=== PATIENT | female | born 1955 | race Caucasian/White ===

== ENCOUNTER 2020-11-23 08:39 | Inpatient (IN) ==
[~2020-11-23 08:39] MED LIST: Dexamethasone IV 4 MG/ML VIAL 1 ml VIAL ONE; HYDROcodone/ACETAMIN 5/325 mg TAB PO PRN; Lidocaine 2% PF 5 ML VIAL ONE; Metoclopramide 5 MG/ML VIAL (10 mg) IV PRN; Midazolam 2 mg/2 ml VIAL 1 mg/ml 2 ml VIAL (2 mg) ONE; Naloxone 0.4 mg VIAL 0.4 mg/ml 1 ml VIAL IV PRN; Ondansetron 4 mg VIAL 2 MG/ML 2 ml VIAL IV PRN; Ondansetron 4 mg VIAL 2 MG/ML 2 ml VIAL ONE; Propofol 10 MG/ML 20 ML BTL ONE; Succinylcholine 200 mg VIAL 20 mg/ml 10 ml VIAL (200 mg) ONE; fentaNYL 250 mcg/5 ml 50 MCG/ML 5 ml VIAL (250 MCG) ONE
[2020-11-23] MEDS ORDERED: Buffered Lidocaine 1% SYRIN 1 ml INTRADERM ONE (09:13)
[2020-11-23] MEDS: Buffered Lidocaine 1% SYRIN 1 ml INTRADERM ONE (09:42)
[2020-11-23] MEDS ORDERED: ceFAZolin 2 GM PREMIX 2 GM/50 ML BAG ONE (09:59)
[2020-11-23] MEDS ORDERED: Lidocaine 4% TOPICAL 50 ML TOP.SOLN ONE (10:24)
[2020-11-23] MEDS ORDERED: Methylene Blue 0.5 % 50 MG/10 ML AMP IV ONE (10:59)
[2020-11-23] MEDS ORDERED: Dexamethasone IV 4 MG/ML VIAL 1 ml VIAL ONE (11:09)
[2020-11-23] MEDS ORDERED: HYDROmorphone 1 MG/1 ML SYRINGE ONE ×2 (12:16→13:53)
[2020-11-23] MEDS ORDERED: Phenylephrine 40 mcg/mL 10mL (400mcg) SYRINGE ONE (13:07)
[2020-11-23] MEDS ORDERED: Propofol 10 MG/ML 20 ML BTL ONE (13:12)
[2020-11-23] MEDS ORDERED: Bacitracin OINTMENT TUBE ONE (14:22)
[2020-11-23] MEDS ORDERED: fentaNYL 100 mcg/2 ml 50 MCG/ML VIAL ONE (15:16)
[2020-11-23] MEDS: fentaNYL 100 mcg/2 ml 50 MCG/ML VIAL IV PRN (15:20)
[2020-11-23] MEDS ORDERED: HYDROcodone/ACETAMIN 5/325 mg TAB PO PRN (15:36)
[2020-11-23] MEDS: Ondansetron 4 mg VIAL 2 MG/ML 2 ml VIAL IV PRN (16:42)
[2020-11-23] MEDS: Ondansetron 4 mg VIAL 2 MG/ML 2 ml VIAL ONE (17:19)
[2020-11-23] MEDS: HYDROcodone/ACETAMIN 5/325 mg TAB PO PRN ×2 (17:50→23:10)
[2020-11-23] MEDS: Cholecalciferol (VIT D3) 1,000 unit TAB PO SCH (17:54)
[2020-11-23] MEDS: Prochlorperazine 5 mg/ml 2 ml VIAL (10 mg) IV PRN (18:29)
[2020-11-23] MEDS: Calcium (OSCAL) 500 mg TAB PO SCH (21:40)
[2020-11-23] MEDS: ESSENTIAL FATTY ACID PO SCH (21:40)
[2020-11-23] MEDS: Bacitracin OINTMENT TUBE TOPICAL SCH (23:00)
[2020-11-23] MEDS: Benzocaine/Menthol LOZ PO PRN (23:10)
[2020-11-24 04:33] LABS: ABS Basophils 0.1 10^3/ul (0-0.2); ABS Lymphocytes 1.2 10^3/ul (1.0-4.8); ABS Monocytes 1.1 10^3/ul (0-0.8); ABS Neutrophils 7.4 10^3/ul (1.5-7.7); Eosinophil % 0.1 %; Hematocrit 38 % (35-47); Hemoglobin 12.5 g/dL (12.0-16.0); Lymphocyte % 12.6 %; Mean Corpuscular Hemoglobin 30 pg (27-31); Mean Corpuscular Hgb Conc 33 g/dL (31-36); Mean Corpuscular Volume 91 fL (80-97); Mean Platelet Volume 7.2 fL (7.4-10.4); Platelet Count 288 10^3/uL (150-450); Red Blood Count 4.15 10^6 /uL (3.70-4.87); Red Cell Distribution Width 14 % (10-15); White Blood Count 9.8 10^3/uL (3.5-10.8)
[2020-11-24 04:49] LABS: Calcium 9.5 mg/dL (8.6-10.3); Creatinine, Serum 0.57 mg/dL (0.51-0.95); EGFR African American 128.8 (>60); EGFR Non-African American 106.4 (>60); Potassium 4.2 mmol/L (3.5-5.0)
[2020-11-24] MEDS: Lactated Ringers 1000 ml BAG 1,000 ML IV SCH (08:17)
[2020-11-24] MEDS: Benzocaine/Menthol LOZ PO PRN (12:28)
[2020-11-24] MEDS: HYDROcodone/ACETAMIN 5/325 mg TAB PO PRN (16:51)
[2020-11-24] MEDS: Cholecalciferol (VIT D3) 1,000 unit TAB PO SCH (21:06)
[2020-11-25 05:46] LABS: ABS Basophils 0.1 10^3/ul (0-0.2); ABS Eosinophils 0.4 10^3/ul (0-0.6); ABS Lymphocytes 2.2 10^3/ul (1.0-4.8); ABS Monocytes 0.6 10^3/ul (0-0.8); ABS Neutrophils 3.2 10^3/ul (1.5-7.7); Eosinophil % 6.6 %; Hematocrit 35 % (35-47); Hemoglobin 11.5 g/dL (12.0-16.0); Lymphocyte % 34.6 %; Mean Corpuscular Hemoglobin 30 pg (27-31); Mean Corpuscular Hgb Conc 33 g/dL (31-36); Mean Corpuscular Volume 91 fL (80-97); Mean Platelet Volume 7.4 fL (7.4-10.4); Platelet Count 259 10^3/uL (150-450); Red Blood Count 3.83 10^6 /uL (3.70-4.87); Red Cell Distribution Width 14 % (10-15); White Blood Count 6.5 10^3/uL (3.5-10.8)
[2020-11-25 06:03] LABS: Calcium 9.4 mg/dL (8.6-10.3); Creatinine, Serum 0.58 mg/dL (0.51-0.95); EGFR African American 126.2 (>60); EGFR Non-African American 104.3 (>60)
[2020-11-25] MEDS ORDERED: Magnesium Hydroxide LIQ 30 ML UDC PO PRN (09:13)
[2020-11-25] MEDS ORDERED: Polyethylene Glycol 3350 17 GM PACKET PO PRN (09:13)
[2020-11-25] MEDS ORDERED: Senna TAB 8.6 mg TAB PO PRN (09:13)
[2020-11-25] MEDS: Cholecalciferol (VIT D3) 1,000 unit TAB PO SCH (20:29)
[2020-11-26 07:36] VITALS: BP 133/83
== END 2020-11-26 11:00 | disposition home or self-care (01) ==
LOC: OR 08:39 → SSU 15:29
PROVIDERS: ADMIT Hospitalist; ATTEND Hospitalist